=== PATIENT | male | born 1950 | race Caucasian/White ===

== ENCOUNTER 2018-01-03 14:31 | Emergency (ER) | payer OTHER, MEDICARE ==
[~2018-01-03 14:31] MED LIST: ASPI-1471 PO; ATOR-1 PO; DILT120C18 PO; DILT300C41 PO; HYDR-2966 PO; MECL12.5 PO; METO-253 PO; OMEP-125 PO; [UNRECOGNIZED DRUG - CODE] PO
[2018-01-03] MEDS ORDERED: TAMS0.4C70 PO (14:36)
[2018-01-03] MEDS ORDERED: NS(*) 0.9% 1000 ML BAG 1,000 ML IV ONE (14:41)
[2018-01-03] MEDS ORDERED: ASPIRIN 81 MG CHEW CHEW ONE (14:45)
--- NOTE | 2018-01-03 14:45 | EKG ---
[place] [facility] [place] NAME: DIRK RODRIGUEZ : [id number] MR: [id number] V: [id number] EXAM DATE: ORDERING PHYSICIAN: ISAAC LUIS TECHNOLOGIST: ELA Welsh Reason : CP Blood Pressure : / mmHG Vent. Rate : 070 BPM Atrial Rate : 064 BPM P-R Int : 000 ms QRS Dur : 124 ms QT Int : 398 ms P-R-T Axes : 000 048 064 degrees QTc Int : 429 ms Atrial fibrillation Nonspecific intraventricular conduction delay Abnormal ECG Confirmed by ASHLEY DOW ([id number]) on 01/04/2018 5:44:44 AM Referred By: TOBY Confirmed By:ASHLEY DOW
[2018-01-03] MEDS ORDERED: ASPIRIN 81 MG CHEW PO ONE (14:50)
[2018-01-03 14:51] LABS: PLATELET COUNT, AUTOMATED 211 K/uL (150-450)
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
[2018-01-03 15:20] LABS: INR 1.06
--- NOTE | 2018-01-03 15:27 | RADIOLOGY IMAGING REPORT ---
FACILITY: [facility] PATIENT NAME: Darryl Roper : 1950 MR: [id number] V: [id number] EXAM DATE: ORDERING PHYSICIAN: ISAAC LUIS TECHNOLOGIST: Location: [facility] Patient: Darryl Roper : 1950 Visit/Account:[id number] Date of Sevice: 01/03/2018 Exam type: CHEST SINGLE AP History: Chest Pain Comparison: Arch 2016. Findings: The lungs are free of acute effusions, infiltrates or edema. There is mild chronic interstitial jones ges throughout the lungs. There is no evidence of pneumothorax or pneumomediastinum. Cardiac silhou ette is normal in size. The trachea is in midline IMPRESSION: 1. No acute cardiac primary process is seen Report Dictated By: Alise Rios MD at 01/03/2018 3:22 PM Report E-Signed By: Alise Rios MD at 01/03/2018 3:23 PM WSN:[id number]
[2018-01-03] MEDS ORDERED: IOPAMIDOL 76% 100 ML INFUS BTL 100 ML ONE (15:51)
[2018-01-03] MEDS ORDERED: NS 0.9% 150 ML BAG 150 ML ONE (15:51)
[2018-01-03 17:00] VITALS: BP 133/86
--- NOTE | 2018-01-03 17:06 | RADIOLOGY IMAGING REPORT ---
FACILITY: [facility] - [place] PATIENT NAME: Darryl Roper : 1950 MR: [id number] V: [id number] EXAM DATE: ORDERING PHYSICIAN: ISAAC LUIS TECHNOLOGIST: Location: [facility] [place] Patient: Darryl Roper : 1950 Visit/Account:[id number] Date of Sevice: 01/03/2018 CT angiogram chest with contrast Indication: Chest pain, shortness breath and elevated d-dimer. Comparison: 01/18/2017. Technique: Axial CT images are obtained through the chest after administration of 100 mL Isovue 370 I V contrast. Reformatted coronal and sagittal images were reviewed as well as coronal MIP images. One of the following dose optimization techniques was utilized in the performance of this exam: auto mated exposure control; adjustment of the mA and/or kV according to the patient's size; or use of an iterative reconstruction technique. Specific details can be referenced in the facility's radiology C T exam operational policy. FINDINGS: No evidence of filling defect within the pulmonary vasculature to suggest pulmonary embolus. Heart is normal size without significant pericardial fluid. Mild coronary artery calcifications. 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 The aorta shows no other indication of aneurysm or di ssection. The stomach hilar regions show no enlarged lymph nodes or abnormal density. Lungs show no focal consolidation, pleural effusion or pneumothorax. Mild scarring. Stable calcified granuloma in the right upper lobe. No other nodules. No focal interstitial opacities. Airways are carmela ar. Bony structures show no acute fracture or discrete lesions. Chest wall shows no enlarged axillary lym ph nodes or masses. 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 Upper abdomen is otherwise unremarkable. IMPRESSION: 1. No evidence of pulmonary embolus. 2. No acute cardiothoracic abnormality 3. Other stable chronic findings as above. Report Dictated By: Sukhjinder Gray at 01/03/2018 4:29 PM Report E-Signed By: Sukhjinder Gray at 01/03/2018 4:47 PM WSN:[id number]
== END 2018-01-03 18:35 | disposition home or self-care (01) ==
LOC: ER 14:35
DX: R07.89 Other chest pain (principal)
CPT/HCPCS: 36415; 71045; 71275; 83880; 84484; 85025; 85379; 85610; 85730; 93005; 96360; 99284; J7030; Q9967; 82040; 82247; 82310; 82374; 82435; 82565; 82947; 84075; 84132; 84155; 84295; 84450; 84460; 84520

== ENCOUNTER 2018-06-30 12:20 | Emergency (ER) | payer MEDICARE ==
[~2018-06-30 12:20] MED LIST changes: -DILT300C41 PO; +DILT300C6 PO; +TAMS0.4C70 PO
--- NOTE | 2018-06-30 12:25 | ER Report ---
History and Physical Time Seen By MD: 12:26 HPI/ROS CHIEF COMPLAINT: Rapid heart rate HISTORY OF PRESENT ILLNESS: 68-year-old male patient comes in to the emergency room with complaint of a rapid heart rate. Patient states he was sitting down watching television when he checked his oxygen using a pulse ox. He notes that he had a heart rate of 130. He states that he then checked his heart rate using his blood pressure cuff. He states his blood pressure is fine but his heart rate was persistent at 133. Patient states he come in to get evaluated for that. Patient states he is not having any chest pain, he denies having any shortness of breath. Patient states he is currently taking diltiazem 120 mg daily. He does also state that he has an appointment with his long filler cigar roller machine on this coming week. REVIEW OF SYSTEMS: Respiratory: No cough, no dyspnea. Cardiovascular: No chest pain, no palpitations. Gastrointestinal: No vomiting, no abdominal pain. Musculoskeletal: No back pain. Allergies: Coded Allergies: No Known Drug Allergies (Unverified , 06/30/18) Home Meds Reported Medications Tamsulosin Hcl (TAMSULOSIN HCL) 0.4 Mg Cap.er.24h, 0.4 MG PO, CAP 01/03/18 Diltiazem Hcl (DILTIAZEM 24HR CD) 120 Mg Cap.er.24h, 120 MG PO QDAY, #30 01/22/17 Omeprazole (OMEPRAZOLE) 20 Mg Capsule.dr, 1 CAP PO QDAY, CAP 01/19/17 Aspirin (ASPIR 81) 81 Mg Tablet.dr, 81 MG PO BID, TAB 01/19/17 Metoprolol Tartrate (METOPROLOL TARTRATE) 50 Mg Tab, 0.5 TAB PO BID, TAB 01/19/17 Atorvastatin Calcium (ATORVASTATIN CALCIUM) 80 Mg Tablet, 0.5 TAB PO every evening, TAB 01/19/17 Past Medical/Surgical History Patient has a past medical history of TIA, intermittent tachycardia, h ypertension, hyperlipidemia, COPD, reflux, large prostate, neuropathy, arthritis, back pain, occasional alcohol use. Patient has surgical history of a stent placed, umbilical hernia repair, those removed, bilateral carpal tunnel. Reviewed Nurses Notes: Yes Hx Smoking: No Smoking Status: Former Smoker Hx Substance Use Disorder: No Hx Alcohol Use: Yes (OCC) Constitutional Vital Sign - Last 24 Hours 06/30/18 06/30/18 06/30/18 06/30/18 12:26 12:30 12:38 12:45 Pulse 133 123 60 Resp 16 7 11 B/P (MAP) 132/86 119/62 (81) 91/58 (69) Pulse Ox 96 97 95 O2 Delivery Nasal Cannula O2 Flow Rate 2.0 06/30/18 06/30/18 13:00 13:15 Pulse 72 72 Resp 10 B/P (MAP) 107/68 (81) 83/53 (63) Pulse Ox 97 98 Physical Exam General Appearance: The patient is alert, has no immediate need for airway protection and no current signs of toxicity. Respiratory: Chest is non tender, lungs are clear to auscultation. Cardiac: regular rate and rhythm Gastrointestinal: Abdomen is soft and non tender, no masses, bowel sounds normal. Musculoskeletal: Neck: Neck is supple and non tender. Extremities have full range of motion and are non tender. Skin: No rashes or lesions. DIFFERENTIAL DIAGNOSIS: After history and physical exam differential diagnosis was considered for atrial fibrillation with RVR, sinus tachycardia, SVT. Medical Decision Making Data Points Result Diagram: 06/30/18 1235 06/30/18 1235 Laboratory Hematology Test 06/30/18 12:35 Red Blood Count 5.56 M/uL (4.00-5.60) Mean Corpuscular Volume 85.9 fL (80.0-96.0) Mean Corpuscular Hemoglobin 28.3 pg (26.0-33.0) Mean Corpuscular Hemoglobin Concent 32.9 g/dL (32.0-36.0) Red Cell Distribution Width 16.1 % (11.5-14.5) Mean Platelet Volume 7.0 fL (7.2-11.1) Neutrophils (%) (Auto) 63.1 % (39.4-72.5) Lymphocytes (%) (Auto) 22.0 % (17.6-49.6) Monocytes (%) (Auto) 9.5 % (4.1-12.4) Eosinophils (%) (Auto) 4.2 % (0.4-6.7) Basophils (%) (Auto) 1.2 % (0.3-1.4) Nucleated RBC Relative Count (auto) 0.1 /100WBC Neutrophils # (Auto) 3.7 K/uL (2.0-7.4) Lymphocytes # (Auto) 1.3 K/uL (1.3-3.6) Monocytes # (Auto) 0.6 K/uL (0.3-1.0) Eosinophils # (Auto) 0.2 K/uL (0.0-0.5) Basophils # (Auto) 0.1 K/uL (0.0-0.1) Nucleated RBC Absolute Count (auto) 0.00 K/uL Prothrombin Time 13.7 seconds (12.0-14.4) Prothromb Time International Ratio 1.05 Activated Partial Thromboplast Time 26 seconds (23-35) Sodium Level 138 mmol/L (137-145) Potassium Level 3.8 mmol/L (3.5-5.0) Chloride Level 99 mmol/L (98-107) Carbon Dioxide Level 30 mmol/L (22-30) Blood Urea Nitrogen 37 mg/dl (9-21) Creatinine 1.30 mg/dl (0.66-1.25) Glomerular Filtration Rate Calc 54.6 Random Glucose 125 mg/dl (75-110) Calcium Level 10.6 mg/dl (8.4-10.2) Total Bilirubin 0.8 mg/dl (0.2-1.3) Aspartate Amino Transf (AST/SGOT) 26 U/L (0-35) Alanine Aminotransferase (ALT/SGPT) 20 U/L (0-56) Alkaline Phosphatase 96 U/L (0-126) Troponin I < 0.012 ng/ml Total Protein 8.0 g/dl (6.3-8.2) Albumin 4.1 g/dl (3.5-5.0) Chemistry Test 06/30/18 12:35 White Blood Count 5.8 k/uL (4.5-11.0) Red Blood Count 5.56 M/uL (4.00-5.60) Hemoglobin 15.7 g/dL (14.0-18.0) Hematocrit 47.8 % (42.0-52.0) Mean Corpuscular Volume 85.9 fL (80.0-96.0) Mean Corpuscular Hemoglobin 28.3 pg (26.0-33.0) Mean Corpuscular Hemoglobin Concent 32.9 g/dL (32.0-36.0) Red Cell Distribution Width 16.1 % (11.5-14.5) Platelet Count 190 K/uL (150-450) Mean Platelet Volume 7.0 fL (7.2-11.1) Neutrophils (%) (Auto) 63.1 % (39.4-72.5) Lymphocytes (%) (Auto) 22.0 % (17.6-49.6) Monocytes (%) (Auto) 9.5 % (4.1-12.4) Eosinophils (%) (Auto) 4.2 % (0.4-6.7) Basophils (%) (Auto) 1.2 % (0.3-1.4) Nucleated RBC Relative Count (auto) 0.1 /100WBC Neutrophils # (Auto) 3.7 K/uL (2.0-7.4) Lymphocytes # (Auto) 1.3 K/uL (1.3-3.6) Monocytes # (Auto) 0.6 K/uL (0.3-1.0) Eosinophils # (Auto) 0.2 K/uL (0.0-0.5) Basophils # (Auto) 0.1 K/uL (0.0-0.1) Nucleated RBC Absolute Count (auto) 0.00 K/uL Prothrombin Time 13.7 seconds (12.0-14.4) Prothromb Time International Ratio 1.05 Activated Partial Thromboplast Time 26 seconds (23-35) Glomerular Filtration Rate Calc 54.6 Calcium Level 10.6 mg/dl (8.4-10.2) Total Bilirubin 0.8 mg/dl (0.2-1.3) Aspartate Amino Transf (AST/SGOT) 26 U/L (0-35) Alanine Aminotransferase (ALT/SGPT) 20 U/L (0-56) Alkaline Phosphatase 96 U/L (0-126) Troponin I < 0.012 ng/ml Total Protein 8.0 g/dl (6.3-8.2) Albumin 4.1 g/dl (3.5-5.0) Coagulation Test 06/30/18 12:35 Prothrombin Time 13.7 seconds Prothromb Time International Ratio 1.05 Activated Partial Thromboplast Time 26 seconds EKG/Imaging EKG Interpretation 12 lead EKG: Rhythm: Sinus tachycardia with ventricular rate of 131 bpm Hustler: normal QRS: normal ST segments: Nonspecific ST abnormality. Imaging CHEST PA AND LAT HISTORY: Chest pain COMPARISON: 01/03/2018 FINDINGS: Cardiomediastinal contours: Normal Lungs and pleura: Left pleural thickening. No consolidation or edema. Bones/soft tissues: Normal Other findings: None significant IMPRESSION: 1. No acute cardiopulmonary disease. Report Dictated By: Deven Diaz MD at 06/30/2018 1:04 PM Report E-Signed By: Deven Diaz MD at 06/30/2018 1:06 PM ED Course/Re-evaluation ED Course Patient was admitted exam room, history and physical were obtained. Differential diagnoses were considered. Patient had an EKG done which showed a sinus tachycardia. Ventricular rate of 131 bpm. A CBC, CMP, troponin and chest x-ray were done. Labs were unremarkable. I did go ahead and treat the patient with 10 mg of IV diltiazem. Patient had immediate resolution of symptoms, the heart rate dropped down to 16 and stated 80. Blood pressure did lower down into the 90s and even one time was 83/63. Patient was gotten up and walked. He had no dizziness, no nausea. We will go ahead and discharge patient home. Patient verbalized understanding and agreement with plan. He will follow-up with his long filler cigar roller machine as directed. Patient is continue with his normal medications. We did discuss increasing his diltiazem, however felt that with his blood pressure getting so that would not be optimal at this time we'll go ahead and allow the long filler cigar roller machine to adjust medications as needed. Decision to Disposition Date: Jun 30, 2018 Decision to Disposition Time: 13:36 Depart Departure Latest Vital Signs Vital Signs Date Time Temp Pulse Resp B/P (MAP) Pulse Ox O2 Delivery O2 Flow Rate FiO2 06/30/18 13:15 72 10 83/53 (63) 98 06/30/18 12:38 2.0 06/30/18 12:26 Nasal Cannula Impression: Primary Impression: Sinus tachycardia Condition: Improved Disposition: HOME OR SELF-CARE Patient Instructions: Tachycardia (ED) Additional Instructions: Continue with normal medications. Follow up with your long filler cigar roller machine on as scheduled. Return to the ER if condition worsens. Get plenty of rest. Increase fluid intake. RODOLFO MCKINNEY Jun 30, 2018 12:25
[2018-06-30] MEDS ORDERED: DILTIAZEM 5 MG/ML 5ML IVPUSH IVP ONE (12:30)
[2018-06-30] MEDS ORDERED: NS(*) 0.9% 500 ML BAG 500 ML IV ONE (12:30)
[2018-06-30 12:44] LABS: PLATELET COUNT, AUTOMATED 190 K/uL (150-450)
--- NOTE | 2018-06-30 12:52 | EKG ---
FACILITY: [facility] PATIENT NAME: DIRK RODRIGUEZ : [id number] MR: [id number] V: [id number] EXAM DATE: ORDERING PHYSICIAN: RODLOFO MCKINNEY TECHNOLOGIST: SAROJ Test Reason : RAPID HR Blood Pressure : / mmHG Vent. Rate : 131 BPM Atrial Rate : 131 BPM P-R Int : 192 ms QRS Dur : 122 ms QT Int : 318 ms P-R-T Axes : 000 081 027 degrees QTc Int : 469 ms Sinus tachycardia Possible Inferior infarct , age undetermined Abnormal ECG When compared with ECG of 03-JAN-2018 14:35, Sinus rhythm has replaced Atrial fibrillation Vent. rate has increased BY 61 BPM Confirmed by CLIFF ADAMS ([id number]) on 06/30/2018 8:31:48 PM Referred By: FAYE Confirmed By:CLIFF ADAMS
[2018-06-30 12:54] LABS: INR 1.05
--- NOTE | 2018-06-30 13:10 | RADIOLOGY IMAGING REPORT ---
FACILITY: [facility] PATIENT NAME: Darryl Roper : 1950 MR: [id number] V: [id number] EXAM DATE: ORDERING PHYSICIAN: RODOLFO MCKINNEY TECHNOLOGIST: Location: [facility] [place] Patient: Darryl Roper : 1950 Visit/Account:[id number] Date of Sevice: 06/30/2018 CHEST PA AND LAT HISTORY: Chest pain COMPARISON: 01/03/2018 FINDINGS: Cardiomediastinal contours: Normal Lungs and pleura: Left pleural thickening. No consolidation or edema. Bones/soft tissues: Normal Other findings: None significant IMPRESSION: 1. No acute cardiopulmonary disease. Report Dictated By: Deven Diaz MD at 06/30/2018 1:04 PM Report E-Signed By: Deven Diaz MD at 06/30/2018 1:06 PM WSN:[id number]
[2018-06-30 13:15] VITALS: BP 83/53
== END 2018-06-30 13:43 | disposition home or self-care (01) ==
LOC: ER 12:26
DX: R00.0 Tachycardia, unspecified (principal); R07.89 Other chest pain; Z86.73 Personal history of transient ischemic attack (TIA), and cerebral infarction without residual deficits; I10 Essential (primary) hypertension
CPT/HCPCS: 71046; 84484; 85025; 85610; 85730; 93005; 96361; 96374; 99284; J3490; J7040; 82040; 82247; 82310; 82374; 82435; 82565; 82947; 84075; 84132; 84155; 84295; 84450; 84460; 84520

== ENCOUNTER → 2018-07-27 | Outpatient (CLI) | payer OTHER ==
[2018-07-27 11:03] LABS: LDL CHOLESTEROL 26 mg/dl
== END ==
LOC: LAB 10:15
PROVIDERS: ATTEND Internal Medicine Cardiovascular Disease
DX: I25.10 Atherosclerotic heart disease of native coronary artery without angina pectoris (principal)
CPT/HCPCS: 36415; 82040; 82247; 82310; 82374; 82435; 82465; 82565; 82947; 83718; 84075; 84132; 84155; 84295; 84450; 84460; 84478; 84520; 85027

== ENCOUNTER → 2018-08-06 | Outpatient (CLI) | payer MEDICARE, OTHER ==
[~2018-08-06] MED LIST changes: +REGADENOSON 0.4 MG/5 ML SYR ONE
--- NOTE | 2018-08-06 16:47 | RT STRESS TEST REPORT ---
FACILITY: [facility] PATIENT NAME: DIRK RODRIGUEZ : [id number] MR: [id number] V: [id number] EXAM DATE: ORDERING PHYSICIAN: KHARI BAUGH TECHNOLOGIST: Yeimi Acquisition Time: 2018-08-06 14:30:42 Total Exercise Time: 00:01:00 Test Indications: CAD Medications: SEE NUCLEAR MED SHEET Protocol: LEXISCAN Max HR: 086 BPM 57% of Pred: 150 BPM Max BP: 134/076 mmHG Max Work Load: 1.0 METS Confirmed by CLIFF ADAMS ([id number]) on 08/06/2018 4:46:45 PM Referred By: Overread By: CLIFF ADAMS
--- NOTE | 2018-08-06 20:01 | RADIOLOGY IMAGING REPORT ---
FACILITY: [facility] [place] PATIENT NAME: Darryl Roper : 1950 MR: [id number] V: [id number] EXAM DATE: ORDERING PHYSICIAN: KHARI BAUGH TECHNOLOGIST: Location: [facility] Patient: Darryl Roper : 1950 Visit/Account:[id number] Date of Sevice: 08/06/2018 EXAMINATION: Single isotope SPECT imaging with regadenoson infusion and gated SPECT imaging. DATE OF EXAMINATION: August 06, 2018. DATE OF INTERPRETATION: August 06, 2018. REQUESTING PHYSICIAN: KHARI BAUGH. INDICATION: The patient is a 68-year-old male evaluated for pain. PROCEDURE: After informed consent the patient received an intravenous injection of 11.7 mCi of Tc-99 m sestamibi followed at an appropriate time interval by rest imaging. The patient then subsequently received an intravenous infusion of 0.4 mg of regadenoson per protocol without complication. Resting heart rate was 73 bpm with a peak heart rate of D3 bpm. Blood pressure at rest was 134 / 76 and fol lowing infusion was 99 / 56. Baseline EKG demonstrates sinus rhythm. There were no diagnostic EKG c hanges of ischemia following infusion. Symptoms were nonspecific. The patient then received an intr avenous injection of 31.9 mCi of Tc-99m sestamibi followed by stress imaging. RAW DATA: Examination of the summed raw data revealed a good quality study. There is mild breast att enuation. There is significant GI uptake of isotope partially interfering with the inferior wall. MYOCARDIAL PERFUSION: The tomographic images demonstrate normal perfusion rest and stress. LVH is foster spected. GATED IMAGES: The gated images demonstrate normal regional wall motion and thickening, LVEF 60%. IMPRESSION: 1. Nondiagnostic Lexiscan stress ECG 2. Normal myocardial perfusion scan. 3. Normal LV systolic function; LVEF 68%. Report Dictated By: Jamil Mills MD at 08/06/2018 7:52 PM Report E-Signed By: Jamil Mills MD at 08/06/2018 7:57 PM WSN:[id number]
== END ==
LOC: NUC 00:39
PROVIDERS: ATTEND Internal Medicine Cardiovascular Disease
DX: I25.10 Atherosclerotic heart disease of native coronary artery without angina pectoris (principal)
CPT/HCPCS: 78452; 93017; A9500; J2785

== ENCOUNTER → 2019-02-01 | Outpatient (CLI) | payer MEDICARE, MEDICAID, OTHER ==
[~2019-02-01] MED LIST changes: +DILT120C12 PO; -DILT120C18 PO; -REGADENOSON 0.4 MG/5 ML SYR ONE
== END ==
LOC: LAB 16:19
PROVIDERS: ATTEND Urology
DX: Z12.5 Encounter for screening for malignant neoplasm of prostate (principal); R97.20 Elevated prostate specific antigen [PSA]
CPT/HCPCS: 36415; 84154; G0103; 84153